=== PATIENT | female | born 1995 | race African-American/Black ===

== ENCOUNTER 2018-03-08 02:05 | Emergency (ER) | payer MEDICAID ==
[~2018-03-08] VITALS: Ht 154.9 cm; Wt 50.0 kg
[2018-03-08 02:09] VITALS: BP 120/72; PULSE 96; RESP 16; TEMP 98.7; O2SAT 100
[2018-03-08] MEDS ORDERED: ANAL1CRE2 RECTAL (03:19)
[2018-03-08] MEDS ORDERED: PROM25TA10 PO (03:21)
[2018-03-08 03:22] VITALS: BP_SYST 102; BP_SYST 110; BP_SYST 114; BP_DIAS 59; BP_DIAS 65; BP_DIAS 77; RESP 15; RESP 17
--- NOTE | 2018-03-08 03:23 | PD ---
HPI Chief Complaint: GI Complaint Time Seen by Provider: 03:10 Travel History International Travel<30 days: No Contact w/Intl Traveler<30days: No Traveled to known affect area: No History of Present Illness HPI 22-year-old female presents to the emergency department for complaint of hemorrhoid pain for the past several days. Intermittent bleeding. Patient denies abdominal pain. Patient has had nausea without vomiting. No report of diarrhea. Patient rates pain as constant. Patient has had hemorrhoidal issues in the past. Patient rates her pain as severe. Patient has not adjusted her diet with dietary fiber or activities. Patient denies as she is on control shot/injection. Last period was normal her. PFSH Past Medical History Narrative Medical Negative past medical history negative surgical history nursing notes reviewed Medical History: Denies Significant Hx Diminished Hearing: No Tetanus Vaccination: < 5 Years Influenza Vaccination: No ?: Not LMP: 03/06/2018 Past Surgical History Surgical History: No Previous Surgery Social History Alcohol Use: No Tobacco Use: No Substance Use: No Allergies-Medications (Allergen,Severity, Reaction): Coded Allergies: No Known Allergies (Unverified , 03/08/18) Reported Meds & Prescriptions Reported Meds & Active Scripts Active Phenergan (Promethazine HCl) 25 Mg Tablet 25 Mg PO Q6H PRN Analpram-Hc Rectal (Hydrocortisone-Pramoxine Rectal) 1-1% Cream 1 Applic RECTAL QID PRN Review of Systems Except as stated in HPI: all other systems reviewed are Neg Physical Exam Narrative GENERAL: Well-developed well-nourished female no acute distress no respiratory distress SKIN: Warm and dry. HEAD: Normocephalic. EYES: No scleral icterus. No injection or drainage. NECK: Supple, trachea midline. No JVD or lymphadenopathy. CARDIOVASCULAR: Regular rate and rhythm without murmurs, gallops, or rubs. RESPIRATORY: Breath sounds equal bilaterally. No accessory muscle use. GASTROINTESTINAL: Abdomen soft, non-tender, nondistended. Rectal exam: Prolapsed hemorrhoids soft non-thrombosed reducible. Data Data Last Documented VS Vital Signs Date Time Temp Pulse Resp B/P (MAP) Pulse Ox O2 Delivery O2 Flow Rate FiO2 03/08/18 05:41 03/08/18 03:22 72 15 80 17 98 17 03/08/18 02:09 98.7 100 Orders Orders Orthostatic Vital Signs (03/08/18 03:10) Ed Discharge Order (03/08/18 04:29) MDM Medical Decision Making Medical Screen Exam Complete: Yes Emergency Medical Condition: Yes Medical Record Reviewed: Yes Interpretation(s) Vital Signs Date Time Temp Pulse Resp B/P (MAP) Pulse Ox O2 Delivery O2 Flow Rate FiO2 03/08/18 05:41 03/08/18 03:22 72 15 110/65 (80) 80 17 114/77 (89) 98 17 102/59 (73) 03/08/18 02:09 98.7 96 16 120/72 (88) 100 Differential Diagnosis Rectal pain, hemorrhoids, thrombosed hemorrhoids Narrative Course Patient with prolapsed reducible non-thrombosed hemorrhoids; complains of dizziness orthostatic measurements obtained; no significant rectal bleeding; patient stable for outpatient management and provided prescription for Analpram Diagnosis Primary Impression: Hemorrhoids Qualified Codes: K64.9 - Unspecified hemorrhoids Referrals: Primary Care Physician call for appointment Patient Instructions: General Instructions Additional Instructions: Increase fluid hydration Follow clear liquid diet advance as tolerated to bland/brat diet and regular diet increasing dietary fiber intake Add fiber supplement to dietary intake May use MiraLAX stool softener per package directions Use Analpram steroid cream as prescribed Use sitz baths several times daily May use ibuprofen/Advil/Motrin 400-600 mg every 6-8 hours as needed for pain associated with inflammation Return to the emergency department for any concerns or change in condition Follow-up with your primary care provider or colorectal surgeon Med/Other Pt SpecificInfo: Prescription(s) given Scripts Promethazine (Phenergan) 25 Mg Tablet 25 MG PO Q6H Y for NAUSEA OR VOMITING, #7 TAB 0 Refills Prov: Rozina Hernandez MD 03/08/18 Hydrocortisone-Pramoxine Rectal (Analpram-Hc Rectal) 1-1% Cream 1 APPLIC RECTAL QID Y for ITCHING/INFLAMMATION, #30 GM 0 Refills Prov: Rozina Hernandez MD 03/08/18 Disposition: 01 DISCHARGE HOME Condition: Stable Rozina Hernandez MD Mar 08, 2018 03:23
== END 2018-03-08 05:42 | disposition home or self-care (01) ==
LOC: NEPC 02:05
DX: K64.9 Unspecified hemorrhoids (principal); R42 Dizziness and giddiness
CPT/HCPCS: 99283